=== PATIENT | female | born 2005 | race Caucasian/White ===

== ENCOUNTER → 2025-02-07 12:13 | Outpatient (REF) | payer OTHER, SELFPAY | LOC: RCS 12:13 | PROVIDERS: ATTENDING PHYSICIAN Internal Medicine Cardiovascular Disease; FAMILY PHYSICIAN Family Medicine | DX: R06.02 Shortness of breath (principal); R00.0 Tachycardia, unspecified; R42 Dizziness and giddiness | CPT/HCPCS: 93017 ==